=== PATIENT | female | born 1955 | race Caucasian/White ===

== ENCOUNTER → 2017-10-26 | Outpatient (CLI) | payer BC ==
--- NOTE | 2017-10-30 09:40 | MRI ---
HISTORY: Tendinitis. Decreased range of motion. Pain. Study: Magnetic resonance imaging of the left shoulder: Multiplanar multisequence magnetic resonanc e imaging of the left shoulder was performed. Comparison: None Findings: Overall examination of the left shoulder reveals moderately severe acromioclavicular joint degenerati on and hypertrophy. Impingement upon the distal supra spinatus muscle isthmus noted. Mild edema is noted in the distal clavicle and medial acromion. The humeral head and bony glenoid are of normal si gnal intensity. Moderate abnormal signal intensity is noted within the distal supraspinatus tendon f elt to be on the basis of tendinosis. Eeyu-oh-kifpbrem thinning is noted at the musculotendinous wilfred ction and in the mid rotator cuff. The supraspinatus tendon shows minimal thickening abnormal signal intensity felt to be on the basis of tendinosis. The infraspinatus appears to be intact. A tiny am ount of fluid is noted in the subacromial bursa and subdeltoid bursa. The biceps tendon shows mild a bnormal signal intensity as it traverses over the humeral head felt to be on the basis of moderate te ndinosis. The biceps labral complex appears to be intact. The superior, anterior, posterior and inf erior labrum appear to be intact. The superior glenohumeral ligament is not well visualized. The mi ddle glenohumeral ligament appears to be intact. The inferior glenohumeral ligament appears to be in tact. IMPRESSION: 1. Moderate tendinosis and mild thinning of the supraspinatus tendon. 2. Moderate focal tendinosis of the distal sub scapularis. 3. Tendinosis of the biceps tendon. 4. Degenerative changes noted with hypertrophy of the acromioclavicular joint which moderately impin ges upon the distal supraspinatus muscle 5. Small amount of fluid within the subacromial and subdeltoid bursa. I do not see evidence of a fo ligia full-thickness tear of the rotator cuff. Reported By:
== END | disposition home or self-care (01) | DRG 558 ==
LOC: RAD 15:23
PROVIDERS: ATTEND Specialist
DX: M75.82 Other shoulder lesions, left shoulder (principal); M75.22 Bicipital tendinitis, left shoulder; M19.012 Primary osteoarthritis, left shoulder
CPT/HCPCS: 73221